=== PATIENT | female | born 1965 | race Caucasian/White ===

== ENCOUNTER 2023-11-13 19:35 | Emergency (ER) | payer BC ==
--- NOTE | 2023-11-13 20:36 | ED Physician Documentation ---
History of Present Illness - Stated complaint Stated Complaint: SOA/DIZZY - Chief complaint Chief Complaint: General - Additonal information Additional information: Patient is a 58-year-old female with past medical history of type 2 diabetes, thyroid disorder, hypertension presenting to the emergency department after feeling dizzy and lightheaded while starting work around 7 PM. 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 She denies any chest pain or shortness of breath with her symptoms but was feeling dizzy lightheaded and nauseous. She notes she has not taking any of her medications for a few months including her metformin and lisinopril for her blood pressure. She notes she has not had a primary care doctor since then and that is why she has been unable to get the medications. She denies any fevers or chills. She notes she has had some generalized bodyaches today but no sore throat runny nose cough. She has persistent headache at this time. 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 : None HEENT: None Psych: None Musculoskeletal: None Derm: None - Past Surgical History Past Surgical History: Yes General: Other - Present Medications Home Medications: Ambulatory Orders Medication Instructions Recorded Confirmed Empagliflozin [Jardiance] 10 mg PO DAILY #30 tablet 11/13/23 Insulin Glargine [Lantus Solostar] 40 unit SUBQ DAILY #3 ea 11/13/23 Pen Needle, Diabetic [Insulin Pen 1 each MC DAILY #30 ea 11/13/23 Needle] metFORMIN [Glucophage] 500 mg PO BIDWM #60 tablet 11/13/23 - Allergies Allergies/Adverse Reactions: Allergies Allergy/AdvReac Type Severity Reaction Status Date / Time No Known Drug Allergies Allergy Verified 11/13/23 20:29 - Social History Does the pt smoke?: No Smoking Status: Never smoker Does the pt drink ETOH?: No Does the pt have substance abuse?: No - Immunizations Immunizations are current?: Yes - POLST Patient has POLST: No PD ED PE NORMAL - Vitals Vital signs reviewed: Yes - General General: Alert and oriented X 3, No acute distress - HEENT HEENT: Atraumatic, PERRL, EOMI, Ears normal, Other (Dry mucous membranes) - Neck Neck: Supple, no meningeal sign, C-Spine cleared by NEXUS criteria - Cardiac Cardiac: RRR, No murmur, No gallop, No rub - Respiratory Respiratory: No respiratory distress, Clear bilaterally Results - Vitals Vitals: Vital Signs - 24 hr 11/13/23 11/13/23 11/13/23 20:12 21:03 21:27 Temperature 36.7 C Heart Rate 90 88 Heart Rate [ 91 Sitting] Heart Rate [ 96 Standing] Heart Rate [ 89 Supine] Respiratory 18 14 Rate Blood Pressure 112/73 108/67 Blood Pressure 118/79 [Sitting] Blood Pressure 82/51 L [Standing] Blood Pressure 103/73 [Supine] O2 Saturation 99 99 11/13/23 11/13/23 21:59 23:28 Temperature Heart Rate 83 88 Heart Rate [ Sitting] Heart Rate [ Standing] Heart Rate [ Supine] Respiratory 18 14 Rate Blood Pressure 106/74 111/82 H Blood Pressure [Sitting] Blood Pressure [Standing] Blood Pressure [Supine] O2 Saturation 94 99 Oxygen O2 Source Room air - Labs Labs: Laboratory Tests 11/13/23 11/13/23 11/13/23 20:56 20:56 20:56 WBC 5.7 RBC 4.80 Hgb 14.3 Hct 42.6 MCV 88.8 MCH 29.8 MCHC 33.6 RDW 11.9 L Plt Count 177 MPV 10.5 Neut # (Auto) 3.9 Lymph # (Auto) 1.3 L [place] # (Auto) 0.3 Eos # (Auto) 0.1 Baso # (Auto) 0.0 Absolute Nucleated RBC 0.00 Nucleated RBC % 0.0 Sodium 129 L Potassium 3.8 Chloride 96 L Carbon Dioxide 21 Anion Gap 12.0 BUN 14 Creatinine 0.7 Estimated GFR (MDRD) 87 L Glucose 461 H Calcium 9.6 Total Bilirubin 1.0 AST 9 L ALT 9 L Alkaline Phosphatase 67 Troponin I High Sens < 2.3 L Total Protein 6.8 Albumin 4.3 Globulin 2.5 Albumin/Globulin Ratio 1.7 TSH 7.08 H Free T4 Direct 0.73 Free T3 pg/mL 3.44 Urine Color Urine Clarity Urine pH Ur Specific [place] Urine Protein Urine Glucose (UA) Urine Ketones Urine Occult Blood Urine Nitrite Urine Bilirubin Urine Urobilinogen Ur Leukocyte Esterase Ur Microscopic Review Urine Culture Comments 11/13/23 22:08 WBC RBC Hgb Hct MCV MCH MCHC RDW Plt Count MPV Neut # (Auto) Lymph # (Auto) [place] # (Auto) Eos # (Auto) Baso # (Auto) Absolute Nucleated RBC Nucleated RBC % Sodium Potassium Chloride Carbon Dioxide Anion Gap BUN Creatinine Estimated GFR (MDRD) Glucose Calcium Total Bilirubin AST ALT Alkaline Phosphatase Troponin I High Sens Total Protein Albumin Globulin Albumin/Globulin Ratio TSH Free T4 Direct Free T3 pg/mL Urine Color YELLOW Urine Clarity CLEAR Urine pH 5.5 Ur Specific [place] 1.015 Urine Protein NEGATIVE Urine Glucose (UA) >=1000 H Urine Ketones 15 H Urine Occult Blood NEGATIVE Urine Nitrite NEGATIVE Urine Bilirubin NEGATIVE Urine Urobilinogen 0.2 (NORMAL) Ur Leukocyte Esterase NEGATIVE Ur Microscopic Review NOT INDICATED Urine Culture Comments NOT INDICATED PD Medical Decision Making - ED course Complexity details: reviewed results, re-evaluated patient ED course: 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 Patient came to the emergency department shortly after. Denies any chest pain shortness of breath associated with her symptoms. She notes she was not feeling well yesterday as she spent a majority of the day in bed but denies any specific symptoms. She does report generalized bodyaches today but no sore throat cough congestion. She ate grapes before coming to the hospital but denies eating much else. She notes she has been noncompliant with her medications for almost a year now after not having a PCP to prescribe them and having insurance issues. Orthostatics are positive here in the emergency department. Patient started on 1 L of fluids here in the ED to help symptoms. EKG shows normal sinus rhythm troponin is within normal range. Chest X-ray here in the ED shows: Limited single view radiograph with low lung volumes. No acute abnormality. Indeterminate prominent appearance of the left hilum, probably similar to prior. Labs remarkable here in emergency department for blood sugar of 461 no signs of anion gap. Patient already receiving 1 L of fluids will give small dose of insulin to help with symptoms as well. Will recheck blood sugar after fluids and insulin given. Pending urine analysis at this time.TSH is elevated pending T3 and T4 labs at this time. Will plan to start patient on metformin at home. She did mention she is also on blood pressure medications however given she is hypotensive here in the emergency department will not restart home blood pressure medications as this could only worsen presyncopal symptoms. Patient taken over by Dr. Hill prior to discharge. Departure - Departure Disposition: 01 Home, Self Care Clinical Impression: Hyperglycemia, Dehydration, Pre-syncope, Orthostatic hypotension Instructions: ED Dehydration, ED Hypotension Orthostatic Prescriptions: metFORMIN [Glucophage] 500 mg PO BIDWM #60 tablet Pen Needle, Diabetic [Insulin Pen Needle] 1 each MC DAILY #30 ea Empagliflozin [Jardiance] 10 mg PO DAILY #30 tablet Insulin Glargine [Lantus Solostar] 40 unit SUBQ DAILY #3 ea Comments: here to go you are seen tonight for uncontrolled diabetes. I sent the prescriptions to the [facility] in [place] on [address]. Start checking her blood sugars again and follow-up with your primary care physician. Eat a h ealthy low carb diet and return for new or worsening symptoms. Forms: PCP List, Activity restrictions Discharge Date/Time: 11/13/23 23:30
[2023-11-13 21:01] LABS: BASOPHILS % (AUTO) 0.5 %; EOSINOPHILS # (AUTO) 0.1 10^3/uL (0.0-0.7); EOSINOPHILS % (AUTO) 1.9 %; HCT - HEMATOCRIT 42.6 % (37.0-47.0); HGB - HEMOGLOBIN 14.3 g/dL (12.0-16.0); LYMPHOCYTES # (AUTO) 1.3 10^3/uL (1.5-3.5); LYMPHOCYTES % (AUTO) 23.5 %; MEAN CORPUSCULAR HEMOGLOBIN 29.8 pg (27.0-31.0); MEAN CORPUSCULAR HGB CONC 33.6 g/dL (32.0-36.0); MEAN CORPUSCULAR VOLUME 88.8 fL (81.0-99.0); MEAN PLATELET VOLUME 10.5 fL (7.9-10.8); MONOCYTES # (AUTO) 0.3 10^3/uL (0.0-1.0); MONOCYTES % (AUTO) 4.6 %; NEUTROPHILS # (AUTO) 3.9 10^3/uL (1.5-6.6); NEUTROPHILS % (AUTO) 69.1 %; PLT - PLATELET COUNT 177 10^3/uL (130-450); RED CELL DISTRIBUTION WIDTH 11.9 % (12.0-15.0); WHITE BLOOD COUNT 5.7 x10^3/uL (4.8-10.8)
[2023-11-13] MEDS: SODIUM CHLORIDE 0.9% 1,000 ML IV STA (21:14)
[2023-11-13 21:22] LABS: TROPONIN I HIGH SENSITIVITY < 2.3 ng/L (2.3-14.8)
--- NOTE | 2023-11-13 21:23 | XRAY Report ---
PROCEDURE: Chest 1V INDICATIONS: dizziness, sob TECHNIQUE: One view of the chest was acquired. COMPARISON: 02/28/2023 FINDINGS: Surgical changes and devices: None. Lungs and pleura: No dense consolidation or pleural effusion. There are low lung volumes. Indetermin ate prominent appearance of the left hilum, probably similar to prior. Mediastinum: Normal heart size, unchanged Bones and chest wall: Unremarkable IMPRESSION: Limited single view radiograph with low lung volumes. No acute abnormality. Indeterminate prominent appearance of the left hilum, probably similar to prior. Reviewed by: Milo Bro MD on 11/13/2023 9:22 PM PDT Approved by: Milo Bro MD on 11/13/2023 9:22 PM PDT Station ID: [id number]
[2023-11-13 21:31] LABS: ALBUMIN 4.3 g/dL (3.2-5.5); ALBUMIN/GLOBULIN RATIO 1.7 (1.0-2.2); ALKALINE PHOSPHATASE 67 IU/L (42-121); ALT ALANINE AMINOTRANSFERASE 9 IU/L (10-60); AST ASPARTATE AMINOTRANSFERASE 9 IU/L (10-42); BUN - BLOOD UREA NITROGEN 14 mg/dL (6-20); CALCIUM 9.6 mg/dL (8.5-10.3); CARBON DIOXIDE - CO2 21 mmol/L (21-32); CHLORIDE 96 mmol/L (101-111); CREATININE 0.7 mg/dL (0.6-1.3); GFR - MDRD 87 (>89); GLUCOSE 461 mg/dL (74-104); POTASSIUM 3.8 mmol/L (3.5-4.5); SODIUM 129 mmol/L (135-145); THYROID STIMULATING HORMONE 7.08 uIU/mL (0.34-5.60); TOTAL PROTEIN 6.8 g/dL (6.4-8.9)
[2023-11-13 22:38] LABS: BILIRUBIN,URINE NEGATIVE (NEGATIVE); GLUCOSE, URINE (UA) >=1000 mg/dL (NEGATIVE); KETONES,URINE (UA) 15 mg/dL (NEGATIVE); LEUKOCYTE ESTERASE, URINE NEGATIVE (NEGATIVE); NITRITE,URINE NEGATIVE (NEGATIVE); OCCULT BLOOD,URINE NEGATIVE (NEGATIVE); PH,URINE 5.5 PH (5.0-7.5); PROTEIN,URINE NEGATIVE (NEGATIVE); UROBILINOGEN,URINE 0.2 (NORMAL) E.U./dL (NORMAL)
--- NOTE | 2023-11-13 22:38 | ED Physician Documentation ---
ED Addendum - Addendum Addendum: 11/13/23 22:38 Signout from PA at 10 PM shift change. 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 She was seen and examined at the bedside. I queried what meds she used to be on and they were metformin, Jardiance, and Lantus. Confirmed dosing of Lantus 40 units once a day and Jardiance 10 mg once a day. 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 She has received IV fluids, IV insulin and I also ordered a dose of IV Lantus. I only order half the dose of IV Lantus as I expect her to probably take it again tomorrow morning as I am prescribing it. On shift change she is pending a T4 and T3 which are normal and follow-up to high TSH. Her urine is also pending. 11/13/23 22:45 Urinalysis has glucose and small ketones. That said there is no anion gap or low bicarb to suggest that she is in DKA. She is feeling much better now and I think she can be discharged. Disposition: Discharged home Condition: Stable Diagnoses: 1. Uncontrolled type 2 diabetes
[2023-11-13 22:41] LABS: CLARITY,URINE CLEAR (CLEAR)
[2023-11-13] MEDS: metFORMIN 500 MG TABLET PO STA (22:49)
[2023-11-13] MEDS: SODIUM CHLORIDE 0.9% 500 ML IV STA (22:49)
[2023-11-13] MEDS: INSULIN REGULAR, HUMAN 300 UNIT/3 ML PEN SUBQ STA (22:50)
[2023-11-13] MEDS: INSULIN GLARGINE-YFGN 300 UNIT/3 ML PEN SUBQ STA (22:52)
[2023-11-13 23:29] VITALS: BP 111/82; O2SAT 99
== END 2023-11-13 23:30 | disposition home or self-care (01) ==
LOC: ED 19:35
DX: E11.65 Type 2 diabetes mellitus with hyperglycemia (principal); I95.1 Orthostatic hypotension; E86.0 Dehydration; R94.31 Abnormal electrocardiogram [ECG] [EKG]; T38.3X6A Underdosing of insulin and oral hypoglycemic [antidiabetic] drugs, initial encounter; Z91.138 Patient's unintentional underdosing of medication regimen for other reason
CPT/HCPCS: 36415; 71045; 80053; 81003; 84439; 84443; 84481; 84484; 85025; 93005; 96360; 96361; 99284; A9270; J1815; 81001; 87086